=== PATIENT | female | born 2000 | race Two or more races ===

== ENCOUNTER 2023-12-26 08:25 | Inpatient (IN) | payer BC, OTHER ==
[~2023-12-26] VITALS: Ht 154.9 cm; Wt 72.4 kg
[2023-12-26] MEDS: MAALOX PLUS or MAALOX 30 ML PO ONE (10:07)
[2023-12-26] MEDS: LIDOCAINE VISCOUS 2% 15ML UD PO ONE (10:08)
[2023-12-26 10:20] LABS: Urine Bacteria None Seen /hpf (None Seen)
[2023-12-26 10:21] VITALS: PULSE 82; RESP 14; O2SAT 100
[2023-12-26] MEDS: ONDANSETRON HCL 4 MG/2 ML VIAL IV ONE (10:26)
[2023-12-26 10:27] LABS: Basophils # (auto) 0.1 10 ^3/uL (0-0.2); Basophils % (auto) 0.3 % (0.0-2.0); Eosinophils # (auto) 0 10 ^3/uL (0-0.8); Eosinophils % (auto) 0.1 % (0.0-7.0); Hematocrit 39.6 % (36.0-46.0); Hemoglobin 13.2 g/dL (12.2-16.2); Lymphocytes # (auto) 1.9 10 ^3/uL (0.4-5.4); Lymphocytes % (auto) 9.5 % (10.0-50.0); Mean Corpuscular Hemoglobin 28.4 pg (28.0-32.0); Mean Corpuscular Hgb Conc. 33.5 g/dL (32.0-36.0); Mean Corpuscular Volume 84.7 fL (80.0-100.0); Monocytes # (auto) 1.4 10 ^3/uL (0-1.3); Monocytes % (auto) 7.2 % (0.0-12.0); Neutrophils # (auto) 16.6 10 ^3/uL (1.6-8.6); Neutrophils % (auto) 82.9 % (37.0-80.0); Nucleated Red Blood Cells % 0.1 %; Red Blood Cells 4.67 10^6/uL (4.0-5.20); Red Cell Distribution Width 13.6 % (11.8-14.3); White Blood Cell 20.1 10^3/uL (4.4-10.8)
[2023-12-26] MEDS: MORPHINE SULFATE 4 MG/ML SYR/VIAL IV ONE ×2 (10:27→14:19)
[2023-12-26] MEDS: SODIUM CHLORIDE 0.9% 1,000 ML IVB ONE (10:28)
[2023-12-26 10:38] LABS: Urine Amorphous Crystal FEW /hpf (None Seen); Urine Blood Negative /uL (Negative); Urine Clarity Ex.Turbid (Clear); Urine Color Light-Orange (Yellow); Urine Protein, UAD TRACE (Negative); Urine Specific Gravity 1.029 (1.001-1.035); Urine Urobilinogen 2 mg/dL (Negative); Urine WBC 29 /hpf (0 - 5); Urine pH 7.5 (5.0-9.0)
[2023-12-26 10:53] LABS: Alanine Aminotransferase 22 U/L (7-40); Albumin 4.7 g/dL (3.2-4.8); Alkaline Phosphatase 46 U/L (46-116); Anion Gap 6 (5-15); Aspartate Aminotransferase 10 U/L (13-40); BUN/Creatinine Ratio 8.8 (10.0-20.0); Bilirubin, Total 0.5 mg/dL (0.2-1.0); Blood Urea Nitrogen 6 mg/dL (9-23); Calcium 9.9 mg/dL (8.7-10.4); Carbon Dioxide 25 mmol/L (20-30); Chloride 108 mmol/L (98-107); Glucose 131 mg/dL (74-106); Sodium 139 mmol/L (136-145)
[2023-12-26 10:54] LABS: Total Protein 7.5 g/dL (5.7-8.2)
[2023-12-26] MEDS: PIPERACILLIN-TAZO 4.5GM 100 ML IV ONE (12:16)
[2023-12-26] MEDS ORDERED: NITROGLYCERIN 0.4 MG SL TAB SL PRN (13:15)
[2023-12-26] MEDS: SODIUM CHLORIDE 0.9% 1,000 ML IV SCH (14:12)
[2023-12-26 16:50] LABS: Prothrombin Time 10.6 sec (9.3-11.8)
[2023-12-26] MEDS: PIPERACILLIN-TAZOB 3.375GM 100 ML IV SCH (18:18)
[2023-12-26 21:58] VITALS: PULSE 85; RESP 18; O2SAT 100
[2023-12-26 22:00] VITALS: BP 101/57; PULSE 85; RESP 18; TEMP 97.7; O2SAT 100
[2023-12-26] MEDS ORDERED: NORETAB PO (23:19)
[2023-12-26] MEDS: MORPHINE SULFATE INJ 2 MG/ml SYRG IV PRN (23:25)
[2023-12-27] VITALS (9 sets, daily range): BP systolic 84–135; BP diastolic 39–70; PULSE 83–149; RESP 13–20; TEMP 98–100.8; O2SAT 93–100
[2023-12-27] MEDS: ONDANSETRON HCL 4 MG/2 ML VIAL IV PRN (04:05)
[2023-12-27 07:16] LABS: Alanine Aminotransferase 15 U/L (7-40); Alkaline Phosphatase 64 U/L (46-116); Anion Gap 11 (5-15); Aspartate Aminotransferase 9 U/L (13-40); Bilirubin, Total 1.6 mg/dL (0.2-1.0); Blood Urea Nitrogen 5 mg/dL (9-23); Calcium 8.8 mg/dL (8.7-10.4); Carbon Dioxide 22 mmol/L (20-30); Chloride 107 mmol/L (98-107); Glucose 110 mg/dL (74-106); Potassium 3.2 mmol/L (3.5-5.1); Sodium 140 mmol/L (136-145); Total Protein 6.6 g/dL (5.7-8.2)
[2023-12-27 07:18] LABS: Basophils # (auto) 0 10 ^3/uL (0-0.2); Basophils % (auto) 0.2 % (0.0-2.0); Eosinophils # (auto) 0 10 ^3/uL (0-0.8); Eosinophils % (auto) 0.1 % (0.0-7.0); Hematocrit 37.9 % (36.0-46.0); Hemoglobin 12.9 g/dL (12.2-16.2); Lymphocytes # (auto) 0.5 10 ^3/uL (0.4-5.4); Lymphocytes % (auto) 19.4 % (10.0-50.0); Mean Corpuscular Hemoglobin 28.9 pg (28.0-32.0); Mean Corpuscular Hgb Conc. 34.1 g/dL (32.0-36.0); Mean Corpuscular Volume 84.7 fL (80.0-100.0); Monocytes # (auto) 0 10 ^3/uL (0-1.3); Monocytes % (auto) 0.6 % (0.0-12.0); Neutrophils % (auto) 79.7 % (37.0-80.0); Nucleated Red Blood Cells % 0.1 %; Red Blood Cells 4.47 10^6/uL (4.0-5.20); Red Cell Distribution Width 13.4 % (11.8-14.3)
[2023-12-27] MEDS ORDERED: MORPHINE SULFATE INJ 2 MG/ml SYRG IV PRN (09:00)
[2023-12-27] MEDS ORDERED: KETOROLAC TROMETH 30 MG/ML 1ML VIAL IV ONE (09:00)
[2023-12-27] MEDS ORDERED: METOCLOPRAMIDE HCL 5MG/ml INJ 2ml VIAL IV ONE (09:00)
[2023-12-27] MEDS ORDERED: HYDROmorphone HCL 2 MG/ML VL/or syr IV PRN ×2 (09:00)
[2023-12-27] MEDS ORDERED: fentaNYL CITRATE 100 MCG/2 ML VL IV PRN (09:00)
[2023-12-27] MEDS ORDERED: MIDAZOLAM HCL 2MG/2ML 2ml VIAL (1mg/ml) ONE (09:06)
[2023-12-27] MEDS ORDERED: PROPOFOL 10 MG/ML 20 ML IV ONE ×2 (09:06→09:22)
[2023-12-27] MEDS ORDERED: ONDANSETRON HCL 4 MG/2 ML VIAL ONE (09:06)
[2023-12-27] MEDS ORDERED: SODIUM CHLORIDE LOCK 20 ML ONE (09:06)
[2023-12-27] MEDS ORDERED: KETAMINE 50mg/ML 1ml syringe ONE (09:06)
[2023-12-27] MEDS ORDERED: fentaNYL CITRATE 100 MCG/2 ML VL ONE (09:06)
[2023-12-27] MEDS ORDERED: MEPERIDINE HCL (25 MG/ML) 1ML VIAL ONE (09:06)
[2023-12-27] MEDS ORDERED: GLYCOPYRROLATE 0.2 MG/ML 1ML VIAL ONE (09:06)
[2023-12-27] MEDS ORDERED: NEOSTIGMINE 1 MG/ML INJ (10mg/10ML VIAL) ONE (09:06)
[2023-12-27] MEDS ORDERED: LIDOCAINE 1% INJ PF 5ML AMP ONE (09:06)
[2023-12-27] MEDS ORDERED: ROCURONIUM 10MG/ML 10ML VIAL IV ONE (09:06)
[2023-12-27] MEDS: LIDOCAINE W/ EPINEPHRINE 2% INJ 20ML VIAL ONE (09:13)
[2023-12-27 09:30] LABS: Platelet Estimate Adequate; White Blood Cell 2.5 10^3/uL (4.4-10.8)
[2023-12-27 10:08] LABS: Hepatitis B Surface Antibody Negative (Negative)
[2023-12-27] MEDS: BUPIVACAINE 0.25% INJ 50ML VIAL ONE (10:08)
[2023-12-27 10:27] LABS: Hepatitis C Antibody Negative (Negative)
[2023-12-27] MEDS: D5W/SOD CHL 0.45%/KCL 20MEQ 1,000 ML IV SCH (12:17)
[2023-12-27] MEDS ORDERED: SUCCINYLCHOLINE CHLORIDE 20 MG/ML 10ML VIAL IV ONE (13:11)
[2023-12-27] MEDS: POTASSIUM CHLORIDE 20 MEQ, LIDOCAINE 1% (LOCAL ANESTH.) 2 ML in SODIUM CHL 0.9% 100 ML IV ONE (13:15)
[2023-12-27] MEDS: SODIUM CHLORIDE 0.9% 500 ML IV ONE (13:17)
[2023-12-27] MEDS: KETOROLAC TROMETH 30 MG/ML 1ML VIAL IV PRN (13:17)
[2023-12-27] MEDS ORDERED: metroNIDAZOLE 500MG/100ML 100 ML IV SCH (14:00)
[2023-12-27] MEDS: HYDROcodone-ACET 5/325MG TAB PO PRN (19:09)
[2023-12-28] VITALS (8 sets, daily range): BP systolic 94–112; BP diastolic 56–63; PULSE 97–115; RESP 18–20; TEMP 97.8–98.6; O2SAT 92–96
[2023-12-28 06:15] LABS: Basophils # (auto) 0 10 ^3/uL (0-0.2); Basophils % (auto) 0.1 % (0.0-2.0); Eosinophils # (auto) 0 10 ^3/uL (0-0.8); Hemoglobin 10.1 g/dL (12.2-16.2); Lymphocytes # (auto) 1.1 10 ^3/uL (0.4-5.4); Lymphocytes % (auto) 7.2 % (10.0-50.0); Mean Corpuscular Hemoglobin 28.7 pg (28.0-32.0); Mean Corpuscular Hgb Conc. 33.7 g/dL (32.0-36.0); Mean Corpuscular Volume 85.1 fL (80.0-100.0); Monocytes # (auto) 0.7 10 ^3/uL (0-1.3); Monocytes % (auto) 4.4 % (0.0-12.0); Neutrophils # (auto) 13.1 10 ^3/uL (1.6-8.6); Neutrophils % (auto) 88.3 % (37.0-80.0); Red Blood Cells 3.52 10^6/uL (4.0-5.20); White Blood Cell 14.9 10^3/uL (4.4-10.8)
[2023-12-28 06:27] LABS: Alanine Aminotransferase 12 U/L (7-40); Albumin 3.3 g/dL (3.2-4.8); Alkaline Phosphatase 40 U/L (46-116); Anion Gap 9 (5-15); Aspartate Aminotransferase 11 U/L (13-40); BUN/Creatinine Ratio 7.8 (10.0-20.0); Blood Urea Nitrogen 5 mg/dL (9-23); Calcium 7.7 mg/dL (8.7-10.4); Carbon Dioxide 21 mmol/L (20-30); Chloride 110 mmol/L (98-107); Glucose 134 mg/dL (74-106); Potassium 3.8 mmol/L (3.5-5.1); Sodium 140 mmol/L (136-145)
[2023-12-28 06:28] LABS: Bilirubin, Total 0.5 mg/dL (0.2-1.0); Total Protein 5.3 g/dL (5.7-8.2)
[2023-12-28] MEDS: ACETAMINOPHEN IV 1000 MG/100ML (10MG/ML) IV ONE (11:16)
[2023-12-28] MEDS ORDERED: MORPHINE SULFATE INJ 2 MG/ml SYRG IV PRN (22:00)
[2023-12-28] MEDS: MORPHINE SULFATE INJ 2 MG/ml SYRG IV PRN (22:20)
[2023-12-29] MEDS: LORazepam 2MG/ML-1ML VIAL IV PRN (00:24)
[2023-12-29 01:00] VITALS: BP 103/59; PULSE 97; RESP 20; TEMP 98.1; O2SAT 96
[2023-12-29 05:00] VITALS: BP 103/58; PULSE 97; RESP 18; TEMP 98.8; O2SAT 95
[2023-12-29 06:31] LABS: Basophils # (auto) 0 10 ^3/uL (0-0.2); Basophils % (auto) 0.1 % (0.0-2.0); Eosinophils # (auto) 0.1 10 ^3/uL (0-0.8); Eosinophils % (auto) 0.5 % (0.0-7.0); Hematocrit 27.2 % (36.0-46.0); Hemoglobin 9.3 g/dL (12.2-16.2); Lymphocytes # (auto) 1.5 10 ^3/uL (0.4-5.4); Lymphocytes % (auto) 12.5 % (10.0-50.0); Mean Corpuscular Hemoglobin 28.8 pg (28.0-32.0); Mean Corpuscular Hgb Conc. 34.2 g/dL (32.0-36.0); Mean Corpuscular Volume 84.2 fL (80.0-100.0); Monocytes # (auto) 0.7 10 ^3/uL (0-1.3); Monocytes % (auto) 5.4 % (0.0-12.0); Neutrophils % (auto) 81.5 % (37.0-80.0); Red Blood Cells 3.23 10^6/uL (4.0-5.20); Red Cell Distribution Width 13.6 % (11.8-14.3); White Blood Cell 12.3 10^3/uL (4.4-10.8)
[2023-12-29 06:54] LABS: Alanine Aminotransferase 12 U/L (7-40); Albumin 3.1 g/dL (3.2-4.8); Alkaline Phosphatase 37 U/L (46-116); Anion Gap 7 (5-15); Aspartate Aminotransferase 17 U/L (13-40); Bilirubin, Total 0.4 mg/dL (0.2-1.0); Calcium 7.8 mg/dL (8.7-10.4); Carbon Dioxide 23 mmol/L (20-30); Chloride 107 mmol/L (98-107); Glucose 143 mg/dL (74-106); Magnesium 1.8 mg/dL (1.6-2.6); Potassium 3.4 mmol/L (3.5-5.1); Sodium 137 mmol/L (136-145); Total Protein 5.1 g/dL (5.7-8.2)
[2023-12-29 06:55] LABS: BUN/Creatinine Ratio 9.4 (10.0-20.0); Blood Urea Nitrogen < 5 mg/dL (9-23)
[2023-12-29 09:52] VITALS: BP 106/60; PULSE 96; RESP 16; TEMP 97.9; O2SAT 94
[2023-12-29] MEDS: ACETAMINOPHEN 325 MG TAB PO PRN (12:12)
[2023-12-29] MEDS: MAGNESIUM OXIDE 400 MG TAB PO ONE (12:13)
[2023-12-29] MEDS: POTASSIUM CHL 20 Meq TABLET PO ONE (12:13)
[2023-12-29 14:50] VITALS: BP 114/73; PULSE 98; RESP 16; TEMP 98.3; O2SAT 95
[2023-12-29 17:32] VITALS: BP 101/59; PULSE 95; RESP 16; TEMP 98.2; O2SAT 95
[2023-12-29 21:00] VITALS: BP 122/72; PULSE 112; RESP 20; TEMP 98.7; O2SAT 94
[2023-12-30 01:00] VITALS: BP 107/71; PULSE 105; RESP 18; TEMP 98.7; O2SAT 90
[2023-12-30 05:00] VITALS: BP 102/67; PULSE 107; RESP 18; TEMP 97.7; O2SAT 91
[2023-12-30 07:24] LABS: Basophils # (auto) 0 10 ^3/uL (0-0.2); Basophils % (auto) 0.3 % (0.0-2.0); Eosinophils # (auto) 0.1 10 ^3/uL (0-0.8); Eosinophils % (auto) 0.6 % (0.0-7.0); Hematocrit 29.9 % (36.0-46.0); Hemoglobin 10.3 g/dL (12.2-16.2); Lymphocytes # (auto) 2.1 10 ^3/uL (0.4-5.4); Lymphocytes % (auto) 19.5 % (10.0-50.0); Mean Corpuscular Hemoglobin 28.7 pg (28.0-32.0); Mean Corpuscular Hgb Conc. 34.4 g/dL (32.0-36.0); Mean Corpuscular Volume 83.5 fL (80.0-100.0); Monocytes # (auto) 0.5 10 ^3/uL (0-1.3); Monocytes % (auto) 4.6 % (0.0-12.0); Nucleated Red Blood Cells % 0.1 %; Red Blood Cells 3.58 10^6/uL (4.0-5.20); Red Cell Distribution Width 13.7 % (11.8-14.3); White Blood Cell 10.7 10^3/uL (4.4-10.8)
[2023-12-30 07:31] LABS: Alanine Aminotransferase 19 U/L (7-40); Albumin 3.3 g/dL (3.2-4.8); Alkaline Phosphatase 67 U/L (46-116); Anion Gap 5 (5-15); Aspartate Aminotransferase 17 U/L (13-40); Calcium 8.3 mg/dL (8.7-10.4); Carbon Dioxide 26 mmol/L (20-30); Chloride 108 mmol/L (98-107); Glucose 101 mg/dL (74-106); Sodium 139 mmol/L (136-145)
[2023-12-30 07:32] LABS: Bilirubin, Total 0.3 mg/dL (0.2-1.0); Total Protein 5.4 g/dL (5.7-8.2)
[2023-12-30 07:33] LABS: BUN/Creatinine Ratio 9.6 (10.0-20.0); Blood Urea Nitrogen < 5 mg/dL (9-23)
[2023-12-30 08:45] VITALS: BP 111/67; PULSE 106; RESP 16; TEMP 98.3; O2SAT 98
[2023-12-30 08:48] VITALS: BP 123/72; PULSE 71; RESP 20
[2023-12-30] MEDS ORDERED: AUG875T PO (10:47)
[2023-12-30] MEDS ORDERED: HYDR-4902 PO (10:47)
[2023-12-30 12:14] VITALS: TEMP 36.8
[2023-12-30 12:28] VITALS: TEMP 98
== END 2023-12-30 12:50 | disposition home or self-care (01) | DRG 854 ==
LOC: ER 08:25 → OVERFLOW 13:06 → EAST 22:54
PROVIDERS: ADMIT Nurse Practitioner Family; ATTEND Internal Medicine Geriatric Medicine
PROC: 0DTJ4ZZ Resection of Appendix, Percutaneous Endoscopic Approach (ICD-10-PCS; principal; 2023-12-27 09:18)
DX: A41.9 Sepsis, unspecified organism (principal); K35.80 Unspecified acute appendicitis; F17.290 Nicotine dependence, other tobacco product, uncomplicated; E87.6 Hypokalemia; K66.0 Peritoneal adhesions (postprocedural) (postinfection); Z79.899 Other long term (current) drug therapy
CPT/HCPCS: 36415; 71045; 74176; 80053; 81001; 83735; 84702; 85025; 85610; 86706; 86803; 86850; 86900; 86901; 87070; 87075; 87076; 87077; 87186; 87205; 96365; 96375; G0378; J0131; J0330; J1885; J2001; J2250; J2405; J2543; J2704; J3490